=== PATIENT | male | born 1960 | race Caucasian/White ===

== ENCOUNTER → 2022-06-24 | Outpatient (POV) | payer BC ==
[~2022-06-24] VITALS: Ht 180.3 cm; Wt 88.6 kg
[2022-06-24 09:20] VITALS: BP 135/77
== END ==
LOC: M IRPOV 08:47
PROVIDERS: ATTEND Radiology Diagnostic Radiology
DX: R22.32 Localized swelling, mass and lump, left upper limb (principal); E11.9 Type 2 diabetes mellitus without complications; I10 Essential (primary) hypertension

== ENCOUNTER → 2022-07-03 | Outpatient (CLI) | payer BC | LOC: M RAD 15:14 | PROVIDERS: ATTEND Radiology Diagnostic Radiology | DX: M79.81 Nontraumatic hematoma of soft tissue (principal) ==

== ENCOUNTER → 2022-07-08 | Outpatient (POV) | payer BC ==
[~2022-07-08] VITALS: Ht 180.3 cm; Wt 88.6 kg
[2022-07-08 11:00] VITALS: BP 147/74
== END ==
LOC: M IRPOV 10:28
PROVIDERS: ATTEND Radiology Diagnostic Radiology
DX: R22.32 Localized swelling, mass and lump, left upper limb (principal)